=== PATIENT | female | born 1995 | race Caucasian/White ===

== ENCOUNTER 2019-07-23 11:36 | Emergency (ER) | payer OTHER, MEDICAID ==
[~2019-07-23] VITALS: Ht 170.2 cm; Wt 63.5 kg
[~2019-07-23 11:36] MED LIST: ACET-787 PO; IMI25 PO
--- NOTE | 2019-07-23 11:41 | NUR ---
Patient ambulated to bed 7. RN evaluating patient at bedside.
[2019-07-23 11:46] VITALS: BP 140/86
--- NOTE | 2019-07-23 13:05 | NUR ---
CHAPERONED DR HENDERSON FOR RECTAL EXAM.
--- NOTE | 2019-07-23 13:08 | NUR ---
DR. STERLING BEDSIDE TO EXAMINE PT URINE SAMPLE COLLECTED. URINE DIP DONE. URINE HCG WAS NEGATIVE.
--- NOTE | 2019-07-23 13:26 | NUR ---
Patient discharged with v/s stable. Written and verbal after care instructions given and explained. Patient alert, oriented and verbalized understanding of instructions. Ambulatory with steady gait. All questions addressed prior to discharge. ID band removed. Patient advised to follow up with PMD. Rx of ANUSOL CREAM given. Patient educated on indication of medication including possible reaction and side effects. Opportunity to ask questions provided and answered.
[2019-07-23 13:27] VITALS: BP 134/75
== END 2019-07-23 13:26 | disposition home or self-care (01) ==
LOC: MED 11:36
DX: K64.9 Unspecified hemorrhoids (principal); F10.20 Alcohol dependence, uncomplicated; R03.0 Elevated blood-pressure reading, without diagnosis of hypertension; K21.9 Gastro-esophageal reflux disease without esophagitis; Z98.890 Other specified postprocedural states; Z79.899 Other long term (current) drug therapy
CPT/HCPCS: 81002; 81025; 99282

== ENCOUNTER 2020-07-29 20:22 | Emergency (ER) | payer MEDICAID, OTHER ==
[~2020-07-29] VITALS: Ht 170.2 cm; Wt 65.5 kg
[~2020-07-29 20:22] MED LIST changes: -ACET-787 PO; +HYDR-5191 PO
[2020-07-29 20:27] VITALS: BP 120/78
--- NOTE | 2020-07-29 20:39 | NUR ---
PT BIB SELF COMPLAINING OF NAUSEA NO VOMITING, AND DIZZINESS X2DAYS STATES SHE FEELS LIKE HER HEAD IS HEAVY TOWARDS THE LEFT SIDE WIT H10/10 PAIN AND IS NOT ABLE TO SLEEP ON THE LEFT SIDE DUE TO THE PAIN, DENIES ALCOHOL OR DRUG USE, NKA, VSS, EYES PERRLA 4MM, GAIT STEADY.
--- NOTE | 2020-07-29 21:10 | NUR ---
ERMD AT BESIDE
[2020-07-29] MEDS ORDERED: NACL 0.9% 1,000 ML IV ONE (21:14)
[2020-07-29] MEDS ORDERED: METOCLOPRAMIDE 10 MG/2 ML INJ VIAL IVP ONE (21:15)
[2020-07-29] MEDS ORDERED: diphenhydrAMINE 50 MG/ML VIAL IVP ONE (21:15)
[2020-07-29] MEDS ORDERED: KETOROLAC 30 MG/ML VIAL IVP ONE (21:15)
[2020-07-29 21:54] LABS: BARBITURATE, URINE NEGATIVE ng/ml (NEG <=200); BENZODIAZEPINE, URINE NEGATIVE ng/mL (NEG <=200); CANNABINOID, URINE NEGATIVE ng/mL (NEG <=50); COCAINE, URINE NEGATIVE ng/mL (NEG <=300); OPIATE, URINE POSITIVE ng/mL (NEG <=2000); PHENCYCLIDINE SCREEN,URINE NEGATIVE ng/mL (NEG <=25)
[2020-07-29] MEDS ORDERED: MORPHINE SULFATE 4 MG/ML SYR IVP ONE (22:40)
--- NOTE | 2020-07-29 23:32 | NUR ---
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
--- NOTE | 2020-07-29 23:46 | NUR ---
PT BROUGHT BACK FROM RADIOLOGY RESTING IN BED
[2020-07-30 00:58] VITALS: BP 132/89
--- NOTE | 2020-07-30 00:58 | NUR ---
Patient discharged with v/s stable. Written and verbal after care instructions given and explained. Patient alert, oriented and verbalized understanding of instructions. Ambulatory with steady gait. All questions addressed prior to discharge. ID band removed. Patient advised to follow up with PMD. Rx of FIORICET, REGLAN given. Patient educated on indication of medication including possible reaction and side effects. Opportunity to ask questions provided and answered.
== END 2020-07-30 00:58 | disposition home or self-care (01) ==
LOC: MED 20:22
DX: G43.909 Migraine, unspecified, not intractable, without status migrainosus (principal); K21.9 Gastro-esophageal reflux disease without esophagitis; Z90.49 Acquired absence of other specified parts of digestive tract; Z79.899 Other long term (current) drug therapy
CPT/HCPCS: 70450; 80305; 81002; 81025; 96361; 96374; 96375; 99284; J1200; J1885; J2270; J2765; J7030

== ENCOUNTER 2020-09-15 07:04 | Emergency (ER) | payer OTHER ==
[~2020-09-15] VITALS: Ht 170.2 cm; Wt 68.9 kg
[2020-09-15 07:20] VITALS: BP 117/60
--- NOTE | 2020-09-15 07:20 | NUR ---
TO BED # 03 AMBULATORY
--- NOTE | 2020-09-15 07:40 | NUR ---
25YO F BIB SELF C/O ABDOMINAL PAIN X 1 WEEK. PT STATES PAIN IS MORE ON THE RIGHT SIDE AND RADIATES TO BACK. PAIN SCALE 10/10, SHARP. PT ALSO NOTED SWELLING OF ABDOMEN X 1 DAY. DENIES DYSURIA, HEMATURIA. DENIES N/V/D. DENIES ANY TRAUMA OR INJURY TO AREA. IN ED, PT VSS. ABDOMEN TENDER TO PALPATION, BS ACTIVE ON ALL QUADRANTS. PT CHANGED TO PT GOWN AND IS SITTING ON BED. ERMD MADE AWARE OF PT STATUS. PMH: NONE MEDS: NONE NKA
--- NOTE | 2020-09-15 07:43 | NUR ---
PT ABLE TO GIVE URINE SAMPLE AT THIS TIME. SPECIMEN IN DIRTY UTILITY.
[2020-09-15] MEDS ORDERED: IBUPROFEN 600 MG TAB PO ONE (11:35)
[2020-09-15 11:37] LABS: APPEARANCE,URINE HAZY (CLEAR); BILIRUBIN,URINE 1+ (NEGATIVE); BLOOD, URINE NEGATIVE (NEGATIVE); COLOR,URINE YELLOW (YELLOW); LEUKOCYTE ESTERASE ,URINE TRACE (NEGATIVE); NITRITE, URINE NEGATIVE (NEGATIVE); UGLUCOSE NEGATIVE (NEGATIVE)
[2020-09-15 11:44] VITALS: BP 117/60
--- NOTE | 2020-09-15 11:44 | NUR ---
Patient discharged with v/s stable. Written and verbal after care instructions given and explained. Patient alert, oriented and verbalized understanding of instructions. Ambulatory with steady gait. All questions addressed prior to discharge. ID band removed. Patient advised to follow up with PMD. Rx of MIRALAX, MG CITRATE given. Patient educated on indication of medication including possible reaction and side effects. Opportunity to ask questions provided and answered.
[2020-09-15 11:54] LABS: RBC,URINE NONE SEEN /HPF (0-5)
== END 2020-09-15 11:44 | disposition home or self-care (01) ==
LOC: MED 07:04
DX: K59.00 Constipation, unspecified (principal); K21.9 Gastro-esophageal reflux disease without esophagitis; Z79.899 Other long term (current) drug therapy; Z90.49 Acquired absence of other specified parts of digestive tract
CPT/HCPCS: 74021; 76856; 81001; 81025; 87086; 99284; 99285

== ENCOUNTER 2021-07-05 17:48 | Emergency (ER) | payer OTHER ==
[~2021-07-05] VITALS: Ht 170.2 cm; Wt 69.9 kg
[2021-07-05 18:21] VITALS: BP 107/70
--- NOTE | 2021-07-05 18:26 | NUR ---
PT TO WAIT IN LOBBY
--- NOTE | 2021-07-05 18:36 | NUR ---
Pt ambulated to bed 11.
--- NOTE | 2021-07-05 18:40 | NUR ---
25 y/o F BIB self from home c/o chest pain since Monday. Patient A&Ox4, ambulatory, reports sternal pain 7/10, stabbing/intermittent, radiating to arm and general chest. Patient states nausea, SOB that she states is normal to her, and weakness. Denies any sickness at home. Reports chest pain comes on intermittently. Denies any medications prior to arrival. Denies vomiting, diarrhea, diziness, headache, fever, chills. LMP: 06/28. Cap refill immediate, skin warm/pink/dry. Bed locked in lowest position, side rails x 1, call light in reach. PMH/Meds/A: Denies Sx: ACL 2014, appendectomy
--- NOTE | 2021-07-05 19:20 | NUR ---
Report and transfer of care endorsed to VERONA Rodney.
--- NOTE | 2021-07-05 19:40 | NUR ---
pt is awake, a&o x4. pt stated chest pain continues 04/24, feels sob when pain begins. pt is in stable condition, all needs met at this time. pt is on athletic monitor. side rails x2, bed locked in lowest position.
[2021-07-05] MEDS ORDERED: IBUP-2213 PO (20:35)
[2021-07-05 20:41] VITALS: BP 95/48
== END 2021-07-05 20:41 | disposition home or self-care (01) ==
LOC: MED 17:48
DX: R07.89 Other chest pain (principal); K21.9 Gastro-esophageal reflux disease without esophagitis; Z79.899 Other long term (current) drug therapy; Z98.890 Other specified postprocedural states; Z90.49 Acquired absence of other specified parts of digestive tract
CPT/HCPCS: 93005; 99283

== ENCOUNTER 2021-11-05 15:48 | Emergency (ER) | payer OTHER ==
[~2021-11-05] VITALS: Ht 170.2 cm; Wt 62.1 kg
[~2021-11-05 15:48] MED LIST changes: +IBUP-2213 PO
[2021-11-05 16:06] VITALS: BP 126/79
--- NOTE | 2021-11-05 17:30 | NUR ---
PT CALLED BY DR. BRADLEY, NO ANSWER. PT CALLED NO ANSWER UNABLE TO LEAVE VM, LWBS.
== END 2021-11-05 17:26 | disposition left against medical advice (07) ==
LOC: MED 15:48
DX: Z53.21 Procedure and treatment not carried out due to patient leaving prior to being seen by health care provider (principal)

== ENCOUNTER 2022-12-18 20:28 | Emergency (ER) | payer OTHER ==
--- NOTE | 2022-12-18 21:44 | NUR ---
Patient left before triage.
--- NOTE | 2022-12-18 21:44 | NUR ---
Called no show in lobby or outside.
== END 2022-12-18 21:44 | disposition left against medical advice (07) ==
LOC: MED 20:28
DX: R10.9 Unspecified abdominal pain (principal); Z53.21 Procedure and treatment not carried out due to patient leaving prior to being seen by health care provider